=== PATIENT | male | born 1970 | race Caucasian/White ===

== ENCOUNTER 2016-09-02 14:20 | Emergency (ER) | payer SELFPAY ==
[~2016-09-02] VITALS: Ht 177.8 cm; Wt 113.4 kg
[2016-09-02 14:26] VITALS: BP 128/80
[2016-09-02] MEDS ORDERED: AMOX1TAB61 PO (14:41)
--- NOTE | 2016-09-02 14:42 | PHYS DOC ---
Past Medical History Past Medical History: No Pertinent History Additional Past Surgical Histo: ortho pins in foot Alcohol Use: None Drug Use: None Adult General Chief Complaint Chief Complaint: ANIMAL BITE HPI HPI 46-year-old male presenting to the emergency department today with right hand pain. He reports being bitten by his own dogs who have been vaccinated and have not been acting suspiciously. This occurred approximately 6 days ago. His wounds have healed however after they healed he developed redness warmth and pain in his right hand. Her it intermittent nonradiating and not associated with numbness tingling or weakness. Review of systems is negative for numbness weakness tingling chest pain shortness of breath. All other review of systems is negative unless otherwise noted in history of present illness. Review of Systems Review of Systems SEE ABOVE. Allergies Allergies Allergies Coded Allergies Type Severity Reaction Last Updated Verified pseudoephedrine Allergy Intermediate 09/02/16 Yes Physical Exam Physical Exam Constitutional: Well developed, well nourished, no acute distress, non-toxic appearance. HENT: Normocephalic, atraumatic, bilateral external ears normal, oropharynx moist, no oral exudates, nose normal. [] Eyes: PERRLA, EOMI, conjunctiva normal, no discharge. [] Neck: Normal range of motion, no tenderness, supple, no stridor. Cardiovascular:Heart rate regular rhythm, no murmur Lungs & Thorax: Bilateral breath sounds clear to auscultation [] Abdomen: Bowel sounds normal, soft, no tenderness, no masses, no pulsatile masses. Skin: Warm, dry, no erythema, no rash. [] Back: No tenderness, no CVA tenderness. Extremities: right Hand exam No tenderness to palpation in the anatomical snuff box. No swelling in the wrist. No ecchymosis. Normal range of motion. The patient has mild erythema of the right upper extremity. It is tender to touch and warm to touch. 2 second cap refill distally. Patient demonstrates the ability to make an "A OK", cross their fingers, and give a thumbs up. Sensory function of the radial, ulnar , and median nerve are intact.. No tenderness to palpation of the elbow or the shoulder proximally with good range of motion in both joints. Neurologic: Alert and oriented X 3, normal motor function, normal sensory function, no focal deficits noted. Psychologic: Affect normal, judgement normal, mood normal. [] Current Patient Data Vital Signs Vital Signs Date Time Temp Pulse Resp B/P Pulse Ox O2 Delivery O2 Flow Rate FiO2 09/02/16 14:26 98.4 84 16 94 Room Air 98.4 EKG EKG [] Radiology/Procedures Radiology/Procedures [] Course & Med Decision Making Course & Med Decision Making Pertinent Labs and Imaging studies reviewed. (See chart for details) 46-year-old male presenting to the emergency department after having cellulitis secondary to a dog bite approximately 6 days ago. Low risk for rabies. Dogs are vaccinated. Dogs been watched for 6 days and not showing any suspicious signs of rabies. Antibiotics ordered. Patient discharged home to follow up with primary care physician over the next 2-3 days. Dragon Disclaimer Dragon Disclaimer This electronic medical record was generated, in whole or in part, using a voice recognition dictation system. Departure Departure Impression: Primary Impression: Cellulitis Disposition: HOME, SELF-CARE Condition: STABLE Referrals: YOGI NEWTON MD Patient Instructions: Animal Bite, Cellulitis Additional Instructions: Thank you for allowing us to participate in your care today. Followup with your primary care physician in 3 days if your symptoms do not improve. If you do not have a primary care provider you can ask for a list of our primary care providers. Return to the emergency department you have any new or concerning findings. This should be evaluated by the primary care physician and any necessary consulting services for continued management within a few days after discharge. Return to emergency room if you have any new or concerning symptoms including but not limited to fever, chills, nausea, vomiting, intractable pain, any new rashes, chest pain, shortness of air, uncontrolled bleeding, difficulty breathing, and/or vision loss. Scripts Amoxicillin/Potassium Clav (Augmentin 875-125 Tablet)1 Each Tablet1 Tab PO BID # 20 TAB Prov:AGNIESZKA ARMENDARIZ MD 09/02/16 AGNIESZKA ARMENDARIZ MD Sep 02, 2016 14:42
== END 2016-09-02 15:00 | disposition home or self-care (01) ==
LOC: ER 14:20
DX: L03.113 Cellulitis of right upper limb (principal); Z88.8 Allergy status to other drugs, medicaments and biological substances
CPT/HCPCS: 99283